=== PATIENT | female | born 1990 | race African-American/Black ===

== ENCOUNTER 2017-08-30 10:09 | Emergency (ER) | payer OTHER ==
[~2017-08-30] VITALS: Ht 165.1 cm; Wt 64.4 kg
[~2017-08-30 10:09] MED LIST: CIPRO 500MG TA500 MG PO; CIPRO500 MG PO; FIORICET 325 MG1 TAB PO; FLEXERIL10 MG PO; IBUPROFEN600 M1 PO; METHERGINE0.2 MG PO; MOTRIN800 MG PO; ZOFRAN4 M2 PO
[2017-08-30 10:20] VITALS: BP 134/77
== END 2017-08-30 12:29 | disposition admitted as inpatient to this hospital (09) ==
LOC: ERH 10:09
DX: R50.9 Fever, unspecified (principal); R30.0 Dysuria
CPT/HCPCS: 81001; 99281

== ENCOUNTER 2017-11-26 19:52 | Emergency (ER) | payer OTHER | END 2017-11-26 20:13 | disposition admitted as inpatient to this hospital (09) | LOC: ERH 19:52 | DX: M25.519 Pain in unspecified shoulder (principal); Z53.21 Procedure and treatment not carried out due to patient leaving prior to being seen by health care provider ==

== ENCOUNTER 2017-11-30 13:26 | Emergency (ER) | payer OTHER ==
[~2017-11-30] VITALS: Ht 165.1 cm; Wt 64.4 kg
[2017-11-30] MEDS ORDERED: NAPROSYN500 M1 PO (17:16)
[2017-11-30] MEDS ORDERED: ACETAMINOPHEN500 M4 PO (17:16)
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
[2017-11-30 17:17] VITALS: BP 128/75
== END 2017-11-30 17:19 ==
LOC: ERH 13:26
DX: M25.561 Pain in right knee (principal)

== ENCOUNTER 2018-02-26 12:43 | Emergency (ER) | payer OTHER ==
[~2018-02-26] VITALS: Ht 165.1 cm; Wt 68.0 kg
[~2018-02-26 12:43] MED LIST changes: +ACETAMINOPHEN500 M4 PO; +NAPROSYN500 M1 PO
--- NOTE | 2018-02-26 12:57 | ED HEADACHE COMPLAINT ---
History of Present Illness General Chief Complaint: Headache Stated Complaint: ALEJANDRA VOMITNG Source: patient, old records Exam Limitations: no limitations Vital Signs & Intake/Output Vital Signs & Intake/Output Vital Signs Date Time Temp Pulse Resp B/P B/P Pulse O2 O2 Flow FiO2 Mean Ox Delivery Rate 02/26 1639 98.2 76 18 122/88 98 Room Air 02/26 1529 98.6 76 18 126/88 98 Room Air 02/26 1252 96.3 69 18 130/86 95 Room Air Allergies Coded Allergies: NO KNOWN ALLERGIES (07/14/16) Reconcile Medications Medroxyprogesterone Acetate 150 MG/ML SYRINGE 1 ML IM Q3M CONTROL ( Reported) Ondansetron (Zofran Odt) 4 MG TAB.RAPDIS 1 TAB SL TID PRN nausea Triage Nurses Notes Reviewed? yes Onset: Gradual Duration: hour(s): Timing: single episode today Quality/Severity: severe Head Injury Location: right frontal : No Patient currently breastfeeds: No HPI: 27YO female presents to ED complaining of headache beginning earlier today. Headache described as severe, right frontal area. Patient also reports nausea with generalized abdominal pains since headache began. She also reports seeing a prism in the right eye with visual changes prior to the headache beginning. Patient has a history of migraine headache, last headache about 4 years ago however felt similar. Patient denies recent head trauma, fevers, vomiting. (Isabel Green) Past History Travel History Traveled to [place] past 21 day No Medical History Any Pertinent Medical History? 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 No (Isabel Green) Review of Systems Review of Systems Constitutional: Reports: no symptoms. Eyes: Reports: see HPI. Ears, Nose, Throat, Mouth: Reports: no symptoms. Respiratory: Reports: no symptoms. Cardiovascular: Reports: no symptoms. Gastrointestinal/Abdominal: Reports: see HPI. Genitourinary: Reports: no symptoms. Musculoskeletal: Reports: no symptoms. Skin: Reports: no symptoms. Neurological/Psychological: Reports: see HPI. Hematologic/Endocrine: Reports: no symptoms. Endocrine: Reports: no symptoms. Immunologic/Allergic: Reports: no symptoms. All Other Systems: Reviewed and Negative (Helena LIVE,Isabel Celis) Physical Exam Physical Exam General Appearance: well developed/nourished, no apparent distress, alert, awake Head: atraumatic, normal appearance Eyes: Bilateral: normal appearance, PERRL, EOMI. Ears, Nose, Throat: normal pharynx, hearing grossly normal Neck: normal inspection, supple, full range of motion Respiratory: normal breath sounds, no respiratory distress, lungs clear Cardiovascular: regular rate/rhythm Gastrointestinal: normal bowel sounds, soft, generalized tenderness through out Back: normal inspection, normal range of motion Extremities: normal inspection, normal range of motion Psychiatric: awake, alert, oriented x 3 Cranial Nerves: normal hearing, normal speech, PERRL, CN II-XII intact Coordination/Gait: normal finger to nose, normal gait Motor/Sensory: no motor/sensory deficits Skin: intact, normal color, warm/dry Core Measures Sepsis Present: No Sepsis Focused Exam Completed? No (Isabel Green) Progress Differential Diagnosis: cluster ALEJANDRA, encephalitis, IC mass/tumor, intracranial Hem., migraine ALEJANDRA, sinusitis, subarach. Hem., tension ALEJANDRA, temporal arteritis Plan of Care: Current Medications Sig/Ta Start time Last Medication Dose Stop Time Status Admin Ketorolac 30 MG ONCE ONE 02/26 1300 CAN Tromethamine 02/26 1301 (Toradol) Following IV Reglan and Benadryl patient reports significant improvement in headache however reports persistent nausea. She is denying abdominal pain at this time. Will medicate with IV Zofran and Tylenol. One hour following additional IV medications patient states her nausea has resolved and her headache has improved significantly. She feels ready to go home at this time. Patient has no abdominal tenderness on repeat abdominal exam. She is neurologically intact on exam, answers questions readily, ambulates with steady gait. Patient's symptoms are most consistent with migraine given ocular aura prior to onset of symptoms. She feels comfortable going home without CT scan, she had decision-making was used. Strict return precautions given which she understands and agrees with. Based on her presentation low suspicion for acute intracranial pathology at this time. (Helena LIVEIsabel Celis) Departure Departure Disposition: HOME OR SELF CARE Condition: Stable Clinical Impression Primary Impression: Headache Qualifiers: Headache type: unspecified Headache chronicity pattern: acute headache Intractability: not intractable Qualified Code: R51 - Headache Secondary Impressions: Nausea Referrals: Yovana Kaufman MD (PCP/Family) Additional Instructions: Take ibuprofen 600 mg 3 times a day for headache. You may also take Tylenol 650 mg. Take Zofran as prescribed as needed for nausea. Follow-up with the neurologist regarding your headache. If you have any worsening headache, feeling as though you might pass out, numbness, weakness, confusion or other concerns please return immediately to the emergency department. Please note that there might be incidental findings in your evaluation that are unrelated to the current emergency department visit. Please notify your primary care doctor about this emergency department visit in order to obtain and review all of the testing performed so that these incidental findings can be monitored as needed. If you had an x-ray performed, please understand that some fractures may not be seen on the initial set of x-rays. If your symptoms persist you might need a repeat set of x-rays to check for such a fracture. If you had a laceration evaluated, please understand that foreign bodies such as glass or wood may not be visible to the naked eye or on plain x-rays. If the wound becomes red, swollen, increasingly more painful or if there is any drainage from the wound, please have it reevaluated by a physician for the possibility of a retained foreign body. If you're unable to follow up as outlined in the discharge instructions please return to the emergency department. Thank you for choosing the [facility] Emergency Department for your care. It was a pleasure to serve you today. Departure Forms: Customer Survey General Discharge Information Prescriptions: Current Visit Scripts Ondansetron (Zofran Odt) 1 TAB SL TID PRN nausea #10 TAB (Helena LIVE,Isabel Celis) PA/SKEIN BANDER Co-Sign Statement Statement: ED Attending supervision documentation- [] I saw and evaluated the patient. I have also reviewed all the pertinent lab results and diagnostic results. I agree with the findings and the plan of care as documented in the PA's/SKEIN BANDER's documentation. [x] I have reviewed the ED Record and agree with the PA's/SKEIN BANDER's documentation. [] Additions or exceptions (if any) to the PAs/SKEIN BANDER's note and plan are summarized below: [] (Nj SANDOVAL,Kyaw Kaur)
[2018-02-26] MEDS ORDERED: MEDROXYPRO150 MG/11 IM (15:29)
[2018-02-26] MEDS ORDERED: ZOFRAN ODT4 M1 SL (16:32)
[2018-02-26 16:39] VITALS: BP 122/88
== END 2018-02-26 16:39 ==
LOC: ERH 12:43
DX: R51 Headache (principal); R11.0 Nausea
CPT/HCPCS: 96374; 96375; J0131; J1200; J2405; J2765